=== PATIENT | male | born 1945 | race Caucasian/White ===

== ENCOUNTER 2021-12-13 15:22 | Observation (INO) | payer MEDICARE, OTHER ==
[~2021-12-13] VITALS: Ht 188 cm; Wt 72.7 kg
--- NOTE | 2021-12-13 15:44 | ED Neurological Problem ---
General Stated Complaint: CONFUSION History of Present Illness Date Seen by Provider: Dec 13, 2021 Time Seen by Provider: 15:40 Initial Comments 76-year-old male with unknown PMH is brought in by EMS with complaints of confusion. Patient lives about 2 pounds away and went to the gas station was very confused, and staff at the gas station called EMS. Patient is a poor historian and does not remember anything and appears to be very confused. Patient's daughter was contacted from the ER and she stated that she has been having concerns of her father developing confusion and dementia. Patient's daughter also stated that she lives in another state and will be driving here to take care of her dad YSABEL. Allergies and Home Medications Allergies Coded Allergies: No Known Drug Allergies (Unverified , 12/13/21) Patient Home Medication List Home Medication List Reviewed: Yes Review of Systems Review of Systems Constitutional: no symptoms reported Eyes: No Symptoms Reported Ears, Nose, Mouth, Throat: no symptoms reported Respiratory: no symptoms reported Cardiovascular: no symptoms reported Gastrointestinal: no symptoms reported Genitourinary: no symptoms reported Musculoskeletal: no symptoms reported Skin: no symptoms reported Psychiatric/Neurological: Cognitive Dysfunction Endocrine: No Symptoms Reported Hematologic/Lymphatic: No Symptoms Reported Physical Exam Vital Signs Vital Signs - First Documented 12/13/21 15:25 Temp 37.1 Pulse 70 Resp 12 B/P (MAP) 138/86 (103) Pulse Ox 97 O2 Delivery Room Air Capillary Refill : Height, Weight, BMI Height: '" Weight: lbs. oz. kg; BMI Method: General Appearance: WD/WN, no apparent distress HEENT: PERRL/EOMI, normal ENT inspection Neck: non-tender, full range of motion Respiratory: chest non-tender, lungs clear Cardiovascular: normal peripheral pulses, regular rate, rhythm Gastrointestinal: normal bowel sounds, non tender, soft Back: normal inspection, no CVA tenderness, no vertebral tenderness Extremities: normal range of motion Neurologic/Psychiatric: no motor/sensory deficits, alert, normal mood/affect, disoriented x 3 Crainal Nerves: normal hearing, normal speech, PERRL Motor/Sensory: no motor deficit, no sensory deficit Skin: normal color Focused Exam Lactate Level 12/13/21 16:15: Lactic Acid Level 0.72 Lactic Acid Level Laboratory Tests Test 12/13/21 16:15 Lactic Acid Level 0.72 MMOL/L (0.50-2.00) Progress/Results/Core Measures Results/Orders Lab Results Laboratory Tests Test 12/13/21 15:30 12/13/21 16:15 Range/Units White Blood Count 6.7 4.3-11.0 10^3/uL Red Blood Count 4.36 4.30-5.52 10^6/uL Hemoglobin 13.3 13.3-17.7 g/dL Hematocrit 39 L 40-54 % Mean Corpuscular Volume 90 80-99 fL Mean Corpuscular Hemoglobin 31 25-34 pg Mean Corpuscular Hemoglobin Concent 34 32-36 g/dL Red Cell Distribution Width 13.2 10.0-14.5 % Platelet Count 207 130-400 10^3/uL Mean Platelet Volume 8.7 L 9.0-12.2 fL Immature Granulocyte % (Auto) 0 % Neutrophils (%) (Auto) 50 42-75 % Lymphocytes (%) (Auto) 37 12-44 % Monocytes (%) (Auto) 9 0-12 % Eosinophils (%) (Auto) 4 0-10 % Basophils (%) (Auto) 0 0-10 % Neutrophils # (Auto) 3.3 1.8-7.8 10^3/uL Lymphocytes # (Auto) 2.5 1.0-4.0 10^3/uL Monocytes # (Auto) 0.6 0.0-1.0 10^3/uL Eosinophils # (Auto) 0.3 0.0-0.3 10^3/uL Basophils # (Auto) 0.0 0.0-0.1 10^3/uL Immature Granulocyte # (Auto) 0.0 0.0-0.1 10^3/uL Sodium Level 138 135-145 MMOL/L Potassium Level 4.0 3.6-5.0 MMOL/L Chloride Level 106 98-107 MMOL/L Carbon Dioxide Level 23 21-32 MMOL/L Anion Gap 9 5-14 MMOL/L Blood Urea Nitrogen 9 7-18 MG/DL Creatinine 1.11 0.60-1.30 MG/DL Estimat Glomerular Filtration Rate 70 BUN/Creatinine Ratio 8 Glucose Level 92 70-105 MG/DL Calcium Level 9.2 8.5-10.1 MG/DL Corrected Calcium 9.0 8.5-10.1 MG/DL Magnesium Level 2.2 1.6-2.4 MG/DL Total Bilirubin 0.7 0.1-1.0 MG/DL Aspartate Amino Transf (AST/SGOT) 17 5-34 U/L Alanine Aminotransferase (ALT/SGPT) 16 0-55 U/L Alkaline Phosphatase 51 40-136 U/L Troponin I < 0.028 <0.028 NG/ML Total Protein 7.1 6.4-8.2 GM/DL Albumin 4.2 3.2-4.5 GM/DL Serum Alcohol < 10 <10 MG/DL Urine Color YELLOW Urine Clarity CLEAR Urine pH 6.0 5-9 Urine Specific [place] 1.010 L 1.016-1.022 Urine Protein NEGATIVE NEGATIVE Urine Glucose (UA) NEGATIVE NEGATIVE Urine Ketones NEGATIVE NEGATIVE Urine Nitrite NEGATIVE NEGATIVE Urine Bilirubin NEGATIVE NEGATIVE Urine Urobilinogen 0.2 < = 1.0 MG/DL Urine Leukocyte Esterase NEGATIVE NEGATIVE Urine RBC (Auto) NEGATIVE NEGATIVE Urine RBC NONE /HPF Urine WBC NONE /HPF Urine Squamous Epithelial Cells RARE /HPF Urine Crystals NONE /LPF Urine Bacteria NEGATIVE /HPF Urine Casts NONE /LPF Urine Mucus NEGATIVE /LPF Urine Culture Indicated NO Lactic Acid Level 0.72 0.50-2.00 MMOL/L Urine Opiates Screen NEGATIVE NEGATIVE Urine Oxycodone Screen NEGATIVE NEGATIVE Urine Methadone Screen NEGATIVE NEGATIVE Urine Propoxyphene Screen NEGATIVE NEGATIVE Urine Barbiturates Screen NEGATIVE NEGATIVE Ur Tricyclic Antidepressants Screen NEGATIVE NEGATIVE Urine Phencyclidine Screen NEGATIVE NEGATIVE Urine Amphetamines Screen NEGATIVE NEGATIVE Urine Methamphetamines Screen NEGATIVE NEGATIVE Urine Benzodiazepines Screen NEGATIVE NEGATIVE Urine Cocaine Screen NEGATIVE NEGATIVE Urine Cannabinoids Screen NEGATIVE NEGATIVE My Orders Orders - NORMA GUAN MD Alcohol (12/13/21 15:56) Cbc With Automated Diff (12/13/21 15:56) Comprehensive Metabolic Panel (12/13/21 15:56) Drug Screen Stat (Urine) (12/13/21 15:56) Lactic Acid Analyzer (12/13/21 15:56) Magnesium (12/13/21 15:56) Ua Culture If Indicated (12/13/21 15:56) Troponin I Amelia (12/13/21 15:56) Ct Head Wo (12/13/21 15:58) Chest 1 View, Ap/Pa Only (12/13/21 15:58) Vital Signs/I&O 12/13/21 15:25 Temp 37.1 Pulse 70 Resp 12 B/P (MAP) 138/86 (103) Pulse Ox 97 O2 Delivery Room Air Progress Progress Note : Progress Note 1. ALTERED MENTAL STATUS: DEMENTIA - CT HEAD: encephalomalacia and parenchymal loss / dementia - CXR: unremarkable - CBC/CMP/UA/UDS: negative labs - Contacted pt's daughter and she asked that her father be admitted and she will come here in 16 hours from [place] to take care of him. Since pt lives alone and is an unsafe discharge home, will admit pt. Diagnostic Imaging Diagonstic Imaging: Xray, CT Plain Films/CT/US/NM/MRI: chest, head Comments [facility] [place], [place] NAME: MARIANELA BRANTLEY [facility] REC#: [id number] PT STATUS: REG ER : 1945 PHYSICIAN: NORMA GUAN MD ADMIT DATE: 12/13/21/ER Draft Date of Exam:12/13/21 CT HEAD WO CLINICAL INDICATION: Patient with confusion. EXAM: Axial CT scan of the brain performed without IV contrast. Auto Exposure Controls were utilized during the CT exam to meet ALARA standards for radiation dose reduction. COMPARISON: None. FINDINGS: There is diffuse brain parenchymal volume loss with the temporal lobes affected the most. There are diffuse patchy and confluent areas of low density involving the white matter of both cerebral hemispheres and periventricular regions. There are iiaer-de-gwitwmwv-sized areas of low density involving the basilar bilateral frontal lobe regions and upper and parasagittal frontal lobe regions bilaterally. These findings may be from post-traumatic changes. There is enlargement of the lateral and third ventricles, likely due to brain parenchymal volume loss. Basal cisterns are unremarkable. There is a qeam-xivfqhvtc-kqkpncsiy depressed deformity of the frontal bone and frontal sinus region with adjacent soft tissue thickening. Paranasal sinuses and mastoid air cells are otherwise clear. IMPRESSION: 1: There is no evidence of acute intracranial process. There is no intracranial hemorrhage. 2: There is diffuse brain parenchymal volume loss with the temporal lobes affected the most. These findings may be seen with dementia. Clinical correlation would better evaluate. 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 4: Chronic bony deformity involving the frontal bone and frontal sinuses. Dictated on workstation # [id number] Dict: 12/13/21 1635 Trans: 12/13/21 1650 [id number] Interpreted by: SARAH QUINTERO MD Electronically signed by: [facility] [employer] [place], [place] NAME: MARIANELA BRANTLEY [facility] REC#: [id number] PT STATUS: REG ER : 1945 PHYSICIAN: NORMA GUAN MD ADMIT DATE: 12/13/21/ER Signed Date of Exam:12/13/21 CHEST 1 VIEW, AP/PA ONLY EXAMINATION: Chest 1 view HISTORY: ams COMPARISON: None available. FINDINGS: Heart size and pulmonary vasculature are normal. The lungs are clear without consolidation, pleural effusion, or pneumothorax. Degenerative changes of the thoracic spine. Osseous structures are otherwise intact. IMPRESSION: 1. No acute radiographic abnormality in the chest. Dictated by: Dictated on workstation # [id number] Dict: 12/13/21 1648 Trans: 12/13/21 1650 MIGUEL [id number] Interpreted by: DARYA BAL DO Electronically signed by: DARYA BAL DO 12/13/21 165 Departure Communication (Admissions) Time/Spoke to Admitting Phy: 17:[address] Thompson. Will admit to obs unit Impression Primary Impression: Dementia Qualified Codes: F03.91 - Unspecified dementia with behavioral disturbance Additional Impressions: Acute confusion At risk for unsafe behavior Disposition: 30 STILL A PATIENT Condition: Stable Admissions Decision to Admit Reason: Admit from ER (General) Decision to Admit/Date: Dec 13, 2021 Time/Decision to Admit Time: 17:40 NORMA GUAN MD Dec 13, 2021 15:44
[2021-12-13 16:04] LABS: BASOPHILS % (AUTO) 0 % (0-10); EOSINOPHILS # (AUTO) 0.3 10^3/uL (0.0-0.3); EOSINOPHILS % (AUTO) 4 % (0-10); HEMATOCRIT 39 % (40-54); HEMOGLOBIN 13.3 g/dL (13.3-17.7); LYMPHOCYTES # (AUTO) 2.5 10^3/uL (1.0-4.0); LYMPHOCYTES % (AUTO) 37 % (12-44); MEAN CORPUSCULAR HEMOGLOBIN 31 pg (25-34); MEAN CORPUSCULAR HGB CONC 34 g/dL (32-36); MEAN CORPUSCULAR VOLUME 90 fL (80-99); MEAN PLATELET VOLUME 8.7 fL (9.0-12.2); MONOCYTES # (AUTO) 0.6 10^3/uL (0.0-1.0); MONOCYTES % (AUTO) 9 % (0-12); NEUTROPHILS # (AUTO) 3.3 10^3/uL (1.8-7.8); NEUTROPHILS % (AUTO) 50 % (42-75); PLATELET COUNT 207 10^3/uL (130-400); WHITE BLOOD COUNT 6.7 10^3/uL (4.3-11.0)
[2021-12-13 16:08] LABS: ALBUMIN 4.2 GM/DL (3.2-4.5); CHLORIDE 106 MMOL/L (98-107); SODIUM 138 MMOL/L (135-145)
[2021-12-13 16:09] LABS: CALCIUM 9.2 MG/DL (8.5-10.1)
[2021-12-13 16:10] LABS: GLUCOSE 92 MG/DL (70-105); TOTAL PROTEIN 7.1 GM/DL (6.4-8.2)
[2021-12-13 16:11] LABS: CARBON DIOXIDE 23 MMOL/L (21-32)
[2021-12-13 16:12] LABS: BILIRUBIN,TOTAL 0.7 MG/DL (0.1-1.0)
[2021-12-13 16:14] LABS: ALKALINE PHOSPHATASE 51 U/L (40-136); CREATININE SERUM 1.11 MG/DL (0.60-1.30); GFR ESTIMATED 70
[2021-12-13 16:15] LABS: BUN/CREATININE RATIO 8
[2021-12-13 16:16] LABS: MAGNESIUM 2.2 MG/DL (1.6-2.4)
[2021-12-13 16:17] LABS: ALANINE AMINOTRANSFERASE 16 U/L (0-55)
[2021-12-13 16:26] LABS: BILIRUBIN,URINE NEGATIVE (NEGATIVE); CLARITY,URINE CLEAR; COLOR,URINE YELLOW; GLUCOSE, URINE (UA) NEGATIVE (NEGATIVE); KETONES,URINE NEGATIVE (NEGATIVE); LEUKOCYTE ESTERASE ,URINE NEGATIVE (NEGATIVE); NITRITE,URINE NEGATIVE (NEGATIVE); PROTEIN,URINE NEGATIVE (NEGATIVE)
[2021-12-13 16:35] LABS: BACTERIA,URINE NEGATIVE /HPF; SQUAMOUS EPITHELIAL CELL,UR RARE /HPF
[2021-12-13 16:49] LABS: AMPHETAMINE SCREEN, URINE NEGATIVE (NEGATIVE); BARBITURATE SCREEN URINE NEGATIVE (NEGATIVE); BENZODIAZEPINES SCREEN URINE NEGATIVE (NEGATIVE); CANNABINOID SCREEN, URINE NEGATIVE (NEGATIVE); COCAINE SCREEN URINE NEGATIVE (NEGATIVE); METHADONE STAT NEGATIVE (NEGATIVE); OPIATE SCREEN URINE NEGATIVE (NEGATIVE); OXYCODONE STAT NEGATIVE (NEGATIVE); PROPOXYPHENE STAT NEGATIVE (NEGATIVE); TRICYCLIC ANTIDEPRESSANTS SCRE NEGATIVE (NEGATIVE)
--- NOTE | 2021-12-13 16:51 | Diagnostic Imaging Report ---
CLINICAL INDICATION: Patient with confusion. EXAM: Axial CT scan of the brain performed without IV contrast. Auto Exposure Controls were utilized during the CT exam to meet ALARA standards for radiation dose reduction. COMPARISON: None. FINDINGS: There is diffuse brain parenchymal volume loss with the temporal lobes affected the most. There are diffuse patchy and confluent areas of low density involving the white matter of both cerebral hemispheres and periventricular regions. There are sefcm-cx-ixhswctt-sized areas of low density involving the basilar bilateral frontal lobe regions and upper and parasagittal frontal lobe regions bilaterally. These findings may be from post-traumatic changes. There is enlargement of the lateral and third ventricles, likely due to brain parenchymal volume loss. Basal cisterns are unremarkable. There is a lzno-npkuyfbhq-mslzqrbnv depressed deformity of the frontal bone and frontal sinus region with adjacent soft tissue thickening. Paranasal sinuses and mastoid air cells are otherwise clear. IMPRESSION: 1: There is no evidence of acute intracranial process. There is no intracranial hemorrhage. 2: There is diffuse brain parenchymal volume loss with the temporal lobes affected the most. These findings may be seen with dementia. Clinical correlation would better evaluate. 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 4: Chronic bony deformity involving the frontal bone and frontal sinuses. Dictated by: Dictated on workstation # [id number]
--- NOTE | 2021-12-13 16:51 | Diagnostic Imaging Report ---
EXAMINATION: Chest 1 view HISTORY: ams COMPARISON: None available. FINDINGS: Heart size and pulmonary vasculature are normal. The lungs are clear without consolidation, pleural effusion, or pneumothorax. Degenerative changes of the thoracic spine. Osseous structures are otherwise intact. IMPRESSION: 1. No acute radiographic abnormality in the chest. Dictated by: Dictated on workstation # [id number]
[2021-12-13 19:52] VITALS: BP 153/84
[2021-12-13] MEDS ORDERED: diphenhydrAMINE 50 MG/ML INJ (BENADRYL) IVP PRN (20:00)
[2021-12-13] MEDS ORDERED: MELATONIN 3 MG TABLET PO PRN (20:00)
[2021-12-13] MEDS ORDERED: BISACODYL 10 MG SUPP (DULCOLAX) PR PRN (20:00)
[2021-12-13] MEDS ORDERED: LACTULOSE SYRUP 10GM/15ML (ENULOSE) 30ML UDC PO PRN (20:00)
[2021-12-13] MEDS ORDERED: CALCIUM CARBONATE 500 MG (TUMS) TAB.CHEW PO PRN (20:00)
[2021-12-13] MEDS ORDERED: polyethylene glycoL POWDER 17 GM (MIRALAX) PACK PO PRN (20:00)
[2021-12-13] MEDS ORDERED: ACETAMINOPHEN 325 MG TABLET PO PRN (20:00)
[2021-12-13] MEDS ORDERED: MILK OF MAGNESIA 400 MG/5 ML 30 ML UDC PO PRN (20:00)
[2021-12-13] MEDS ORDERED: ANTACID SUSP 30 ML UDC (MYLANTA) PO PRN (20:00)
[2021-12-13] MEDS ORDERED: diphenhydrAMINE 25 MG TAB (BENADRYL) PO PRN (20:00)
[2021-12-13] MEDS ORDERED: ONDANSETRON 4 MG (ZOFRAN) ORAL DISSOLVE TAB PO PRN (20:00)
[2021-12-13] MEDS ORDERED: ONDANSETRON 4 MG/2 ML (SDV) Z0FRAN IV PRN (20:00)
[2021-12-13] MEDS: DOCUSATE SODIUM 100 MG (COLACE) CAP PO SCH (21:48)
[2021-12-13] MEDS: SENNOSIDES 8.6 MG (SENOKOT) TAB PO SCH (21:48)
[2021-12-13] MEDS ORDERED: ENOXAPARIN 40 MG/0.4 ML (LOVENOX) SYR SC SCH (22:00)
[2021-12-13 23:18] VITALS: BP 140/85
[2021-12-14 04:29] VITALS: BP 156/67
[2021-12-14 07:46] VITALS: BP 141/70
[2021-12-14] MEDS: DOCUSATE SODIUM 100 MG (COLACE) CAP PO SCH (09:33)
[2021-12-14] MEDS: SENNOSIDES 8.6 MG (SENOKOT) TAB PO SCH (09:34)
--- NOTE | 2021-12-14 10:58 | Physical Therapy Evaluation ---
PT Evaluation-General Medical Diagnosis Admission Date Dec 13, 2021 at 18:47 Medical Diagnosis: dementia, unsafe behavior Onset Date: Dec 13, 2021 Therapy Diagnosis Therapy Diagnosis: independent with transfers and ambulation Precautions Precautions/Isolations: Fall Prevention, Standard Precautions Referral Physician: Jay Reason for Referral: Evaluation/Treatment Medical History Additional Medical History unknown other than dementia Social History Current Living Status: Alone Patient states he has stairs to get into his home but doesn't answer if he has railing, patient gets upset at having to answer questions. Prior Prior Level of Function SCALE: Activities may be completed with or without assistive devices. 4-Htxhdmwbyb-mvrdcnm completes the activity by him/herself with no assistance from a helper. 5-Set-up or Clean-up Assistance-helper sets up or cleans up; patient completes activity. [place] assists only prior to or following the activity. 4-Supervision or Touching Assistance-helper provides verbal cues and/or touching/steadying and/or contact guard assistance as patient completes activity. Assistance may be provided throughout the activity or intermittently. 3-Partial/Moderate Assistance-helper does LESS THAN HALF the effort. [place] lifts, holds or supports trunk or limbs, but provides less than half the effort. 2-Substantial/Maximal Assistance-helper does MORE THAN HALF the effort. [place] lifts or holds trunk or limbs and provides more than half the effort. 2-Laqgtagzn-rtyhxy does ALL the effort. Patient does none of the effort to complete the activity. Or, the assistance of 2 or more helpers is required for the patient to complete the activity. If activity was not attempted, code reason: 7-Patient Refused. 9-Not Applicable-not attempted and the patient did not perform the activity before the current illness, exacerbation or injury. 10-Not Attempted due to Environmental Limitations-(lack of equipment, weather restraints, etc.). 88-Not Attempted due to Medical Conditions or Safety Concerns. patient states he was getting around on his own, no assistive devices used PT Evaluation-Current Subjective Patient in recliner pre tx, has no complaints of pain. Patient gets angry with questions and also with directions for muscle testing, etc. Pt/Family Goals none stated Objective Patient Orientation: Person, Confused ROM/Strength ROM Lower Extremities WNL Sensory Vision: Functional Hearing: Functional Transfers Sit to Stand (QC): 6 Chair/Zwl-oy-Bukwz Xfer(QC): 6 Gait Does the Patient Walk?: Yes Mode of Locomotion: Walk Anticipated Mode of Locomotion: Walk Walk 10 feet (QC): 6 Walk 50 ft with 2 Turns(QC): 6 Walk 150 ft (QC): 6 Distance: 300' Gait Assistive Device: None Comments/Gait Description Patient ambulates and performs transfers independently without the use of an assistive devices. Patient shows no unsteadiness, just a slightly slumped posture. Balance Sitting Static: Normal Sitting Dynamic: Normal Standing Static: Normal Standing Dynamic: Normal Assessment/Needs Patient is confused but independent with mobility. Patient will be discharged from PT services at this time due to being independent with mobility. Rehab Potential: Good PT Plan Treatment/Plan Treatment Plan: Discontinue PT Treatment Duration: Dec 14, 2021 Frequency: Safety Risks/Education Patient Education: Gait Training, Transfer Techniques, Correct Positioning, Safety Issues Teaching Recipient: Patient Teaching Methods: Discussion Response to Teaching: Unable to Comprehend (gets angry with direction) Discharge Recommendations Plan DC Time/GCodes Time In: 1020 Time Out: 1032 Total Billed Treatment Time: 12 Total Billed Treatment 1 visit EVL 12' SOURAV ZAMAN PT Dec 14, 2021 10:58
[2021-12-14 11:33] VITALS: BP 158/83
--- NOTE | 2021-12-14 11:42 | Occupational Therapy Eval ---
OT Evaluation-General/PLF Medical Diagnosis Admission Date Dec 13, 2021 at 18:47 Medical Diagnosis: dementia, unsafe behavior Onset Date: Dec 13, 2021 Therapy Diagnosis Therapy Diagnosis: dementia Precautions Precautions/Isolations: Fall Prevention, Standard Precautions Safety Interventions: Bed Exit Alarm, Reorient-Attempt Referral Physician: Jay Referral Reason: Evaluation/Treatment Medical History Pertinent Medical History: Dementia Current History Pt arrived to ER with AMS. Poor historian, no family present to verify responses. Pt oriented to self, year, and month only. He reports he is [facility]. He can be easily agitated. He reports living alone (that's how I like it) and that he was indep with adls prior to hospitalization. Reviewed History: Yes Social History Current Living Status: Alone ADL-Prior Level of Function SCALE: Activities may be completed with or without assistive devices. 2-Cpcwlkzpft-arducjk completes the activity by him/herself with no assistance from a helper. 5-Set-up or Clean-up Assistance-helper sets up or cleans up; patient completes activity. [place] assists only prior to or following the activity. 4-Supervision or Touching Assistance-helper provides verbal cues and/or touching/steadying and/or contact guard assistance as patient completes activity. Assistance may be provided throughout the activity or intermittently. 3-Partial/Moderate Assistance-helper does LESS THAN HALF the effort. [place] lifts, holds or supports trunk or limbs, but provides less than half the effort. 2-Substantial/Maximal Assistance-helper does MORE THAN HALF the effort. [place] lifts or holds trunk or limbs and provides more than half the effort. 3-Fnefvaecw-erqwdy does ALL the effort. Patient does none of the effort to complete the activity. Or, the assistance of 2 or more helpers is required for the patient to complete the activity. If activity was not attempted, code reason: 7-Patient Refused. 9-Not Applicable-not attempted and the patient did not perform the activity before the current illness, exacerbation or injury. 10-Not Attempted due to Environmental Limitations-(lack of equipment, weather restraints, etc.). 88-Not Attempted due to Medical Conditions or Safety Concerns. Self Care: Independent Functional Cognition: Unknown Drive Self: Yes (per patient) OT Current Status Subjective Pt confused, denies pain, willing to participate in evaluation. Appearance Pt left sitting in recliner, orin alarm set. Mental Status/Objective Patient Orientation: Person, Time Current Hand Dominance: Right Upper Extremity ROM WNL, large nodule on R cubital fossa region, however still with full ROM in elbow. ADL-Treatment Eating (QC): 6 Lower Body Dressing (QC): 6 (per clinical judgment) On/Off Footwear (QC): 6 Pt reclined in bed at OT arrival. Easily distracted, consistent cues to redirect back to task. Indep with bed mobility. Able to demonstrate good flexibility to reach feet in order to don/doff footwear. He stood independently and adjusted pants/belt without LOB. Anticipate no difficulty when donning pants. He ambulated within room without assistive device and reached to point for objects outside the window. No unsteadiness exhibited. While pt does not have any physical deficits, he is very confused and will not be safe to return home alone at this time. It should also be noted that pt should not be driving post discharge. Education OT Patient Education: Purpose of tx/functional activities, Safety issues Teaching Recipient: Patient Teaching Methods: Discussion Response to Teaching: Verbalize Understanding, Return Demonstration OT Shop Superintendent Goals Shop Superintendent Goals 1=Demonstrate adherence to instructed precautions during ADL tasks. 2=Patient will verbalize/demonstrate understanding of assistive devices/modifications for ADL. 3=Patient will improve strength/tolerance for activity to enable patient to perform ADL's. OT Education/Plan Problem List/Assessment Assessment: No Skilled OT Needs ID'd Discharge Recommendations Plan/Recommendations: Discontinue OT Therapy Discharge Recommendati: Intermittent Supervision, Home & Family Treatment Plan/Plan of Care Treatment,Training & Education: Yes Patient would benefit from OT for education, treatment and training to promote independence in ADL's, mobility, safety and/or upper extremity function for ADL's. Plan of Care: Cognitive Retraining, Functional Mobility Treatment Duration: Dec 14, 2021 Frequency: 1 time per week Estimated Hrs Per Day: .25 hour per day Time/GCodes Start Time: 10:53 Stop Time: 11:12 Total Time Billed (hr/min): 19 Billed Treatment Time 1 Dilma Gasca OT Dec 14, 2021 11:42
--- NOTE | 2021-12-14 19:14 | Discharge Summary ---
Discharge Summary Hospital Course Was the Problem List Reviewed?: Yes Problems/Dx: (1) Altered mental status Status: Acute (2) Dementia Status: Acute Qualifiers: Qualified Codes: F03.91 - Unspecified dementia with behavioral disturbance Hospital Course Date of Admission: Dec 13, 2021 at 18:47 Admission Diagnosis : Altered mental status Family Physician/Provider: Anupama Holt-Senior Quality Analyst Date of Discharge: 12/14/21 Discharge Diagnosis: Dementia Hospital Course: Kt White is a 76 year old male who presented with altered mental status and was admitted with dementia. He had a CT head which showed no acute abnormalities but did show diffuse parenchymal volume loss greatest in the bilateral temporal lobes. He remained stable. He was discharged home with a friend. His daughter is traveling in from [place] and will provide assistance. He will follow up at the [facility] in [place] on Friday. Labs and Pending Lab Test: Home Meds Active No Active Prescriptions or Reported Medications Assessment/Pt Instructions See instructions Discharge Planning: <30 minutes discharge planning Discharge Instructions Discharge Diet: No Restrictions Activity as Tolerated: Yes Discharge Physical Examination Vital Signs Vital Signs Date Time Temp Pulse Resp B/P (MAP) Pulse Ox O2 Delivery O2 Flow Rate FiO2 12/14/21 14:25 12/14/21 11:33 36.6 57 18 99 Room Air General Appearance: No Apparent Distress, WD/WN HEENT: PERRL/EOMI, TMs Normal, Normal ENT Inspection, Pharynx Normal Respiratory: Lungs Clear, Normal Breath Sounds, No Respiratory Distress Cardiovascular: Regular Rate, Rhythm, No Edema, No Murmur Gastrointestinal: Normal Bowel Sounds, Non Tender, Soft Extremity: Normal Inspection, Non Tender, No Pedal Edema Neurologic/Psychiatric: Alert, Disoriented Allergies: Coded Allergies: No Known Drug Allergies (Unverified , 12/13/21) Discharge Summary Date of Admission Dec 13, 2021 at 18:47 Date of Discharge Dec 14, 2021 at 14:00 Discharge Date: Dec 14, 2021 Discharge Time: 14:00 Admission Diagnosis Altered mental status Discharge Diagnosis (1) Dementia Status: Acute Qualifiers: Qualified Codes: F03.91 - Unspecified dementia with behavioral disturbance DAVID CAMARA MD Dec 14, 2021 19:14
== END 2021-12-14 12:41 | disposition home or self-care (01) ==
LOC: ER 15:28 → 4TH 15:28 → UNDOADMOB 18:47 → 4TH 19:49 → UNDODISOB 12-14 14:00
PROVIDERS: ADMIT Internal Medicine; ATTEND Internal Medicine
DX: R41.82 Altered mental status, unspecified (principal); F03.91 Unspecified dementia, unspecified severity, with behavioral disturbance
CPT/HCPCS: 70450; 71045; 80053; 80306; 81000; 83605; 83735; 84484; 85025; 97161; 97165; 99283; G0378; G0480; 36415; 80320